=== PATIENT | male | born 1990 | race Caucasian/White ===

== ENCOUNTER 2021-05-30 03:43 | Emergency (ER) | payer SELFPAY ==
[~2021-05-30] VITALS: Ht 162.6 cm; Wt 95.0 kg
[2021-05-30] MEDS: IBUPROFEN 400MG TABLET PO ONE ×2 (04:35→04:36)
[2021-05-30] MEDS ORDERED: IBUP-2028 MT (04:49)
[2021-05-30 05:14] VITALS: BP 122/78
== END 2021-05-30 05:15 | disposition home or self-care (01) ==
LOC: ER 03:43
DX: M25.572 Pain in left ankle and joints of left foot (principal); F41.9 Anxiety disorder, unspecified
CPT/HCPCS: 73600; 99283